=== PATIENT | male | born 1945 | race Caucasian/White ===

== ENCOUNTER → 2017-10-30 | Outpatient (CLI) | payer BC ==
[~2017-10-30] MED LIST: NAPR-1169 PO
== END | disposition home or self-care (01) ==
LOC: C.RDSM 17:55
PROVIDERS: ATTEND Physical Medicine & Rehabilitation Sports Medicine
DX: M25.551 Pain in right hip (principal)

== ENCOUNTER → 2017-12-07 | Outpatient (CLI) | payer BC ==
[2017-12-07 11:36] LABS: HEMOGLOBIN A1C 5.5 % (4.5-5.6)
[2017-12-07 11:40] LABS: ALBUMIN 3.8 gm/dl (3.4-5.0); ALT/SGPT 43 U/L (12-78); AST/SGOT 23 U/L (15-37); BLOOD UREA NITROGEN 14 mg/dl (7-18); CALCIUM 8.9 mg/dl (8.5-10.1); CARBON DIOXIDE 27 mmol/L (21-32); CREATININE 0.93 mg/dl (0.60-1.40); GLUCOSE 108 mg/dl (70-99); POTASSIUM 4.2 mmol/L (3.5-5.1); SODIUM 136 mmol/L (136-145)
[2017-12-07 11:51] LABS: ALKALINE PHOSPHATASE 73 U/L (45-117); CHOLESTEROL 148 mg/dl (0-200); LDL CHOLESTEROL CALCULATED 67 mg/dl; TOTAL PROTEIN 7.7 gm/dl (6.4-8.2)
== END | disposition home or self-care (01) ==
LOC: C.LABBC 08:07
PROVIDERS: ATTEND Internal Medicine Geriatric Medicine
DX: Z00.00 Encounter for general adult medical examination without abnormal findings (principal); M19.90 Unspecified osteoarthritis, unspecified site; R73.9 Hyperglycemia, unspecified; I10 Essential (primary) hypertension; Z68.41 Body mass index [BMI] 40.0-44.9, adult

== ENCOUNTER → 2018-01-10 | Outpatient (CLI) | payer BC ==
[~2018-01-10] MED LIST changes: +ATOR10TA82 PO; +OXYC-57 PO; +WARF2TAB PO
== END | disposition home or self-care (01) ==
LOC: C.LAB 15:41
PROVIDERS: ATTEND Physician Assistant
DX: Z01.818 Encounter for other preprocedural examination (principal)

== ENCOUNTER 2018-01-17 07:50 | Inpatient (IN) | payer BC, OTHER ==
[2018-01-08 14:42] VITALS: BMI 44.0
--- NOTE | 2018-01-08 15:11 | PAT Medication Instructions ---
Service Date Jan 08, 2018. Current Home Medication List Atorvastatin (Lipitor), 10 MG PO QAM Naproxen (Naprosyn), 500 MG PO BID Medication Instructions For Your Scheduled Surgery - Hold the following medications 5 days prior to surgery per your surgeon's instructions: Naproxen (Naprosyn), 500 MG PO BID - Take the following medications the morning of surgery with a sip of water: Atorvastatin (Lipitor), 10 MG PO QAM If you have any questions please call us at [phone] or [phone] or [phone]
--- NOTE | 2018-01-08 16:04 | DIAGNOSTIC IMAGING REPORT ---
TWO VIEW CHEST CLINICAL HISTORY: Preoperative examination. FINDINGS: PA and lateral chest radiographs are compared to study dated 03/02/2015. The cardiomediastinal silhouette is unremarkable. There is atherosclerotic calcification of the thoracic aorta. The lungs and pleural spaces are clear. There is no pneumothorax. The bony thorax appears intact. IMPRESSION: No active disease in the chest. Electronically signed by: Graham Geller M.D. 01/08/2018 4:03 PM Dictated Date/Time: 01/08/2018 4:03 PM
[2018-01-08 16:33] LABS: BASO % 0.5 %; BASO ABS # 0.03 K/uL (0-0.2); EOS % 5.2 %; EOS ABS # 0.32 K/uL (0-0.5); HEMATOCRIT 42.1 % (42-52); HEMOGLOBIN 14.9 g/dL (14.0-18.0); IG# 0.05 K/uL (0.00-0.02); LYMPH % 44.1 %; LYMPH ABS # 2.69 K/uL (1.2-3.4); MEAN CELL VOLUME 93.3 fL (80-100); MEAN CORPUSCULAR HGB CONC 35.4 g/dl (32-36); MEAN PLATELET VOLUME 8.5 fL (7.4-10.4); MONO % 8.7 %; MONO ABS # 0.53 K/uL (0.11-0.59); NEUT % 40.7 %; NEUT ABS # 2.48 K/uL (1.4-6.5); PLATELET COUNT 201 K/uL (130-400); RED CELL DISTRIBUTION WIDTH CV 13.1 % (11.5-14.5); RED CELL DISTRIBUTION WIDTH SD 44.9 fL (36.4-46.3)
[2018-01-08 16:44] LABS: INR 0.9 (0.9-1.1); PTT PATIENT 27.3 SECONDS (21.0-31.0)
--- NOTE | 2018-01-10 16:32 | HISTORY & PHYSICAL EXAMINATION ---
DATE OF ADMISSION: 01/17/2018 CHIEF COMPLAINT: Right hip pain. HISTORY OF PRESENT ILLNESS: This 72-year-old white male presents to the office with complaints of right hip pain that has been ongoing for approximately 8 years. Pain has become worse with time. He is now having difficulty with ADLs. No interruption in sleep. He does note his activity has changed. He has lost motion. He notes significant groin pain. No numbness or tingling. He has tried activity modification without improvement as well as OTC medications including Tylenol and Naprosyn. He elects to proceed with right total hip arthroplasty in hopes of alleviating his pain. Preoperative imaging has been obtained. PAST MEDICAL HISTORY: Significant for elevated cholesterol, sleep apnea, use of CPAP, obesity, and a history of arthritis. PAST SURGICAL HISTORY: Colon resection and reanastomosis for a villous adenoma in 2005. Tonsillectomy in February 2015 with incision and drainage of tonsillar abscess. CURRENT MEDICATIONS: Naprosyn 500 mg b.i.d. and Lipitor 10 mg daily. ALLERGIES: KNOWN ALLERGY TO PENICILLIN, WHICH CAUSED HIVES. He does take amoxicillin without issue. KNOWN ALLERGY TO SHELLFISH. FAMILY HISTORY: Reviewed and noncontributory. Parents are . REVIEW OF SYSTEMS: Significant for above stated conditions, otherwise unremarkable. PHYSICAL EXAMINATION: GENERAL: Well-developed and well-nourished, obese, elderly white male in no acute distress. Sitting in a chair. Alert and oriented. SKIN: Warm and dry with good turgor. No rashes or lesions. No ecchymosis. HEENT: Normocephalic and atraumatic. Eyes PERRLA, EOMI. Nares patent bilaterally without turbinate enlargement. Oropharynx is without erythema or exudate. No lesions noted. Uvula midline. Oral mucosa moist. Fair dentition. Fillings are noted. HEART: RRR. No MGR. LUNGS: Clear to auscultation bilaterally. No crackles, rhonchi or wheezing. Good air movement. Occasional dry cough. ABDOMEN: Obese. Bowel sounds present x4. Soft and nontender. No organomegaly. No masses. MUSCULOSKELETAL: Right hip evaluation reveals no obvious asymmetry or deformity. He has good external rotation of around 30 degrees. Internal rotation only to neutral. This is limited by pain. Hip flexion to around 95 degrees. This is also limited by pain. No focal discomfort with palpation over the greater trochanter or IT band. He does get discomfort with palpation over the anterior flexion crease. Ambulatory with an antalgic gait. NEUROLOGIC: Cranial nerves II through XII are intact. Gross sensation is intact across the lower extremities by soft touch. Peripheral pulses are 2+. DATA: Radiographic imaging previously obtained shows significant joint space narrowing, periarticular osteophytes, and subchondral cyst formation of the right hip. IMPRESSION: Right hip end-stage degenerative joint disease. PLAN: Postoperative prescriptions for Percocet and Coumadin will be provided at discharge from the hospital. Anticipate discharge to home with 2 weeks of home health services and then outpatient PT. Preoperative lab work, EKG, and chest x-ray have been ordered. Medical clearance has already been obtained from his PCP. He has a walker and will bring it to the hospital at the time of surgery. HUGH
[2018-01-17] VITALS (8 sets, daily range): BP systolic 108–172; BP diastolic 71–92; PULSE 73–88; TEMP 36.4–37.1; O2SAT 94–98; Ht 177.8 cm; Wt 43.7 kg
[~2018-01-17] VITALS: Ht 177.8 cm; Wt 43.7 kg
[~2018-01-17 07:50] MED LIST changes: +BUPIVACAINE 0.5 % 5 MG/1 ML PF 10ML VIAL ONE; +CEFAZOLIN 3000MG IV PUSH 22.5 ML IV SCH; +LACTATED RINGER'S 1000ML 1,000 ML IV SCH; +LACTATED RINGER'S 1000ML 500 ML IV SCH; +LACTATED RINGER'S 1000ML IV SCH; -OXYC-57 PO; +TRANEXAMIC ACID INJ 1,000 MG x 1 Bag Preop IV SCH; -WARF2TAB PO
--- NOTE | 2018-01-17 08:27 | History & Physical Bridge Note ---
H&P Re-Evaluation Bridge Note: I have examined the patient, reviewed the History & Physical and in the interval since the performance of the History & Physical I have noted the following changes of clinical significance:consent obtained. No changes noted
[2018-01-17] MEDS ORDERED: MIDAZOLAM HCL 1 MG/ML 2ML VIAL ONE (09:49)
[2018-01-17] MEDS ORDERED: FENTANYL CITRATE INJ 50 MCG/1 ML 2 ML VIAL ONE (09:49)
[2018-01-17] MEDS ORDERED: VANCOMYCIN 1GM ED/ASU OMNICELL ONE (10:22)
[2018-01-17] MEDS ORDERED: NURSING VERBAL MED ORDER STA (10:36)
[2018-01-17] MEDS ORDERED: POVIDONE-IODINE OP SOLN 30 ML BTL ONE (10:52)
[2018-01-17] MEDS ORDERED: ORTHO JOINT ANESTHETIC ONE (10:52)
[2018-01-17] MEDS ORDERED: VANCOMYCIN IV 1,000 MG in SODIUM CHLORIDE 0.9% 250ML 250 ML IV STA (11:03)
[2018-01-17] MEDS ORDERED: EpHEDrine SULFATE INJ 50 MG/ML AMP IV PRN (11:15)
[2018-01-17] MEDS ORDERED: FENTANYL CITRATE INJ 50 MCG/1 ML 2 ML VIAL IV PRN (11:15)
[2018-01-17] MEDS ORDERED: ATROPINE SULFATE 0.1 MG/ML 5ML SYR IV PRN (11:15)
[2018-01-17] MEDS ORDERED: ONDANSETRON INJ 2 MG/ML 2 ML VIAL IV PRN ×2 (11:15→13:00)
[2018-01-17] MEDS ORDERED: VANCOMYCIN CONSULT ACTIVE PRN (11:15)
[2018-01-17] MEDS ORDERED: LIDOCAINE HCL 2% 2 ML VIAL (20MG/ML) ONE (11:37)
[2018-01-17] MEDS ORDERED: PROPOFOL IV EMULSION 10 MG/ML 20 ML VIAL IV ONE ×2 (11:37→11:55)
[2018-01-17] MEDS ORDERED: EpHEDrine SULFATE 50MG/5ML SYR ONE (11:37)
[2018-01-17] MEDS: ROPIVACAINE 5MG/ML 30 ML 150 MG, BUPIVACAINE/EPINEPHR 0.5% MPF 30 ML, KETOROLAC TROMETH... INFIL SCH ×14 (12:27→12:29)
--- NOTE | 2018-01-17 12:36 | [facility] Post Operative Brief Note ---
Immediate Operative Summary Operative Date Jan 17, 2018. Pre-Operative Diagnosis Right Hip End-Stage Degenerative Joint Disease Post-Operative Diagnosis Right Hip End-Stage Degenerative Joint Disease Procedure(s) Performed Right Total Hip Arthroplasty--Uncemented Surgeon Dr. Elliott Cutter Grinder Operator Surgeon(s) Dr. Thien Noel (Fellow)/JAYNE Barth Estimated Blood Loss 200 ml Findings Consistent with Post-Op Diagnosis Fluids (cc crystalloids) 1500cc Specimens A. Right Femoral Head Drains None Anesthesia Type Spinal MAC Complication(s) none Disposition Accompanied Pt To Recover: no Disposition: Recovery Room / PACU
[2018-01-17] MEDS ORDERED: ACETAMINOPHEN 325 MG TAB PO PRN (13:00)
[2018-01-17] MEDS ORDERED: ALUMINUM/MAGNESIUM/SIMETH (MAALOX MAX) 30 ML UDC PO PRN (13:00)
[2018-01-17] MEDS ORDERED: MAGNESIUM HYDROXIDE SUSP 30 ML UDC PO PRN (13:00)
[2018-01-17] MEDS ORDERED: TAMSULOSIN HCL 0.4 MG CAP PO PRN (13:00)
[2018-01-17] MEDS ORDERED: METOCLOPRAMIDE HCL INJ 5 MG/ML 2 ML VIAL IV PRN (13:00)
[2018-01-17] MEDS ORDERED: DiphenhydrAMINE HCL 50 MG/ML VIAL IV PRN (13:00)
[2018-01-17] MEDS ORDERED: MoRPHine SULFATE 2 MG/ML CARP IV PRN (13:00)
[2018-01-17] MEDS ORDERED: BISACODYL 10 MG SUPP PR PRN (13:00)
--- NOTE | 2018-01-17 13:31 | PROGRESS NOTE ---
DATE: 01/17/2018 Postop check status post right total hip replacement. The patient is awake and alert in the recovery room. He denies any chest pain, shortness of breath, fever, chills, nausea, vomiting or headache. Vital signs are stable. He is afebrile. Neurovascular check is limited by his block. It has worn off yet. Wound dressing is clean, dry and intact. Postop x-rays look excellent. ASSESSMENT: Overall, doing well. Continue with care pathway. At this point in time, he will need to have MRSA precautions due to hospital policy although his immediate culture of his nose was normal and for some reason the second one today was not performed prior to the nasal swabbing with Betadine. As such, we will have to follow protocol and keep him in isolated type behavior. He was also given an empiric dose of vancomycin. Continue with his Ancef.
--- NOTE | 2018-01-17 13:39 | OPERATIVE REPORT ---
DATE OF OPERATION: 01/17/2018 SURGEON: Tong Elliott MD WILLOW MACHINE OPERATOR: Sadie. SECOND FELLED SEAM OPERATOR: David Pierson PA-C PREOPERATIVE DIAGNOSIS: Osteoarthritis, right hip. POSTOPERATIVE DIAGNOSIS: Same. OPERATION PERFORMED: Noncemented right total hip replacement. SUMMARY OF IMPLANTS: Size 52 acetabular shell sector cup hole eliminator, cancellous screw 6.5 x 30, acetabular liner 36 x 52 neutral, femoral stem 3, high offset Tri-Lock and 36+8.5 femoral head. ESTIMATED BLOOD LOSS: 200 mL. CRYSTALLOID: 1600 mL. PERIOPERATIVE SITUATION: Medically cleared male with intractable hip pain. He is high risk based on his size and his comorbidities, but meets criteria for surgical treatment of severe hip osteoarthritis. He has failed all conservative management and wished to proceed. He understands the risks and benefits. DESCRIPTION OF PROCEDURE: The patient was properly identified, site verified, consent verified, 3 grams of Ancef confirmed as being given, as well as a gram of vancomycin based on a remote history of having MRSA. He was prepped and draped in usual routine fashion with the patient placed in the left lateral decubitus position. A posterior approach to the hip was made. Sharp dissection carried to skin and blunt dissection down to the fascia. This was then incised. The Charnley retractor was then placed, care taken to protect the sciatic nerve. The short external rotators were released. They were very contracted. The capsule was T'd, the hip was then dislocated, the femoral neck was resected. There was a huge inverted labrum with marked degenerative disease. This was all excised and serial reaming carried up to a 52 and a 52 cup impacted into appropriate anteversion and inclination with excellent rim fit. The 6.5 x 30 screw was placed with excellent purchase. A trial liner seated. The femur was then flexed and internally rotated and the jukebox coin collector, lateralizing rasp, and serial broaching up to a size 3 applied. The hip was then reduced with a +5 and a +8.5, the +8.5 gave the leg lengths to be equal. The hip was then dislocated. The trial remaining implants removed. The wound irrigated with Pulsavac with Betadine and then the permanent hole eliminator and liner seated, the permanent head and stem seated. The hip was then reduced. It was stable in all planes. The leg lengths were within millimeters of equality. The capsule was then closed with #2 Vicryl. There were no major remnants of the contracted external rotators that would reach so they were left alone. IT band was then closed over deep drain and with #2 Vicryl, the subcutaneous layer in 2 layers with #2 Vicryl and 2-0 Vicryl and the skin with stainless steel clips. Appropriate dressing applied. The patient transferred to the recovery room in satisfactory condition, having tolerated the procedure well. Again, estimated blood loss was 200 mL. Bone pathology pending on the femoral head and neck. Crystalloid 3600-8825 mL. SUMMARY OF IMPLANTS: As noted above. DVT prophylaxis with Coumadin. I attest to the content of the Intraoperative Record and any orders documented therein. Any exception s are noted below.
--- NOTE | 2018-01-17 13:53 | DIAGNOSTIC IMAGING REPORT ---
SINGLE VIEW PELVIS; SINGLE VIEW RIGHT HIP CLINICAL HISTORY: Postoperative examination. FINDINGS: An AP portable view of the hips and pelvis with an additional AP portable view of the right hip are obtained. A bipolar right hip arthroplasty is in near-anatomic alignment. A single cortical lag screw transfixes the acetabular cup. No acute fracture is identified. There are expected postoperative changes overlying the right hip including skin clips, subcutaneous gas, a surgical drain, and soft tissue swelling. Mild arthritic change is seen in the left hip. Lumbosacral spondylosis is partially imaged. IMPRESSION: Expected postoperative findings status post right hip arthroplasty. No acute fracture is seen. Electronically signed by: Graham Geller M.D. 01/17/2018 1:52 PM Dictated Date/Time: 01/17/2018 1:51 PM
[2018-01-17] MEDS ORDERED: MoRPHine SULFATE 4 MG/ML 1 ML CARP\\VIAL IV PRN (14:30)
[2018-01-17] MEDS ORDERED: D5W AND 1/2NSS + 20MEQ KCL 1,000 ML IV SCH (14:30)
--- NOTE | 2018-01-17 14:52 | Anesthesiology Progress Note ---
Anesthesia Post Op Note Date & Time Jan 17, 2018 at 14:51 Vital Signs Pain Intensity: 0 Vital Signs Past 12 Hours Date Time Temp Pulse Resp B/P (MAP) Pulse Ox O2 Delivery O2 Flow Rate FiO2 01/17/18 13:47 73 15 01/17/18 13:47 73 15 98 01/17/18 13:45 132/77 01/17/18 13:42 74 11 01/17/18 13:42 72 11 99 01/17/18 13:41 123/74 01/17/18 13:37 68 14 100 01/17/18 13:37 68 14 01/17/18 13:36 131/58 01/17/18 13:32 79 20 99 01/17/18 13:32 76 20 01/17/18 13:31 70 20 98 01/17/18 13:31 76 20 01/17/18 13:30 141/92 01/17/18 13:28 37.1 73 20 141/92 (107) 98 Nasal Cannula 2 01/17/18 13:26 71 10 01/17/18 13:26 69 10 99 01/17/18 13:25 134/73 01/17/18 13:21 72 4 99 01/17/18 13:21 74 4 01/17/18 13:20 136/67 01/17/18 13:18 74 22 98 01/17/18 13:18 72 22 01/17/18 13:15 138/67 01/17/18 13:13 71 16 99 01/17/18 13:13 73 16 01/17/18 13:12 147/64 01/17/18 13:08 77 18 89 01/17/18 13:08 77 18 01/17/18 13:05 114/70 01/17/18 13:03 72 18 98 01/17/18 13:03 73 18 01/17/18 13:00 122/72 01/17/18 12:58 74 21 01/17/18 12:58 74 21 98 01/17/18 12:55 131/66 01/17/18 12:53 36.4 79 18 129/70 (86) 97 Room Air 10 01/17/18 12:53 79 15 129/70 96 01/17/18 12:53 79 15 01/17/18 08:46 36.5 88 20 172/92 95 Room Air Notes Mental Status: alert / awake / arousable, participated in evaluation Pt Amnestic to Procedure: Yes Nausea / Vomiting: adequately controlled Pain: adequately controlled Airway Patency, RR, SpO2: stable & adequate BP & HR: stable & adequate Hydration State: stable & adequate Neuraxial Anesthesia: was administered, sensory block is resolving Anesthetic Complications: no major complications apparent
[2018-01-17] MEDS ORDERED: WARFARIN SOD 5 MG TAB PO SCH (16:00)
[2018-01-17] MEDS: ACETAMINOPHEN IV 1,000 MG in EMPTY BAG 0 ML IV SCH (16:28)
[2018-01-17] MEDS: KETOROLAC TROMETHAMINE 15 MG/ML VIAL IV. SCH ×2 (16:29→22:09)
[2018-01-17] MEDS: FERROUS GLUCONATE 324 MG TAB PO SCH (18:22)
[2018-01-17] MEDS ORDERED: TRANEXAMIC ACID INJ 1,000 MG in SODIUM CHLORIDE 0.9% 100ML 100 ML IV SCH (19:00)
[2018-01-17] MEDS ORDERED: WARF2TAB PO ×2 (19:23)
[2018-01-17] MEDS ORDERED: OXYC-57 PO ×2 (19:23)
[2018-01-17] MEDS: OXYCODONE HCL IR 5 MG TAB (IMMEDIATE RELEASE) PO PRN (19:54)
[2018-01-17] MEDS: CEFAZOLIN IV 2,000 MG in SYRINGE 0 ML IV SCH (20:48)
[2018-01-17] MEDS: DOCUSATE SODIUM 100 MG CAP PO SCH (20:48)
[2018-01-18] MEDS: OXYCODONE HCL IR 5 MG TAB (IMMEDIATE RELEASE) PO PRN (00:01)
[2018-01-18] MEDS: ACETAMINOPHEN IV 1,000 MG in EMPTY BAG 0 ML IV SCH ×2 (00:53→08:23)
[2018-01-18 03:36] VITALS: BP 111/74; PULSE 71; TEMP 37; O2SAT 95
[2018-01-18] MEDS: KETOROLAC TROMETHAMINE 15 MG/ML VIAL IV. SCH ×2 (04:59→10:52)
[2018-01-18] MEDS: CEFAZOLIN IV 2,000 MG in SYRINGE 0 ML IV SCH (05:04)
[2018-01-18 07:15] VITALS: BP 113/58; PULSE 80; TEMP 37.3; O2SAT 95
[2018-01-18] MEDS ORDERED: DEXAMETHASONE INJ 10 MG in SYRINGE 0 ML IV SCH (07:30)
--- NOTE | 2018-01-18 07:42 | PROGRESS NOTE ---
DATE: 01/18/2018 SUBJECTIVE: Status post right total hip replacement. OBJECTIVE: The patient is doing well, is sleeping well, got up, ambulated well. Denies chest pain, shortness of breath, fever, chills, nausea, vomiting, or headache. Voiding. Passing gas. Vital signs are stable. He is afebrile. A.m. labs are pending. Wound dressing is clean, dry, and intact. Drain is removed. Neurovascular check, femoral sciatic nerve is normal. ASSESSMENT AND PLAN: Overall, doing well status post right total knee replacement. We will discharge to home today. A Prevena dressing will be placed later today. We will follow up in 1 week for Prevena dressing change, discharge on 4 mg of Coumadin if INR is 1.5 or less and 2 mg if INR is 1.6 or greater.
[2018-01-18 07:52] LABS: BASO % 0.1 %; BASO ABS # 0.01 K/uL (0-0.2); EOS % 0.4 %; EOS ABS # 0.04 K/uL (0-0.5); HEMATOCRIT 37.8 % (42-52); HEMOGLOBIN 13.1 g/dL (14.0-18.0); IG# 0.03 K/uL (0.00-0.02); LYMPH % 19.5 %; LYMPH ABS # 1.95 K/uL (1.2-3.4); MEAN CELL VOLUME 94.3 fL (80-100); MEAN CORPUSCULAR HEMOGLOBIN 32.7 pg (25-34); MEAN CORPUSCULAR HGB CONC 34.7 g/dl (32-36); MEAN PLATELET VOLUME 8.5 fL (7.4-10.4); MONO % 13.3 %; MONO ABS # 1.33 K/uL (0.11-0.59); NEUT % 66.4 %; NEUT ABS # 6.63 K/uL (1.4-6.5); PLATELET COUNT 170 K/uL (130-400); RED CELL DISTRIBUTION WIDTH CV 13.1 % (11.5-14.5); RED CELL DISTRIBUTION WIDTH SD 45.2 fL (36.4-46.3); WHITE BLOOD COUNT 9.99 K/uL (4.8-10.8)
--- NOTE | 2018-01-18 08:07 | DISCHARGE SUMMARY ---
CHIEF COMPLAINT: Right hip pain. HISTORY OF PRESENT ILLNESS: This 73-year-old male admitted for elective right total hip replacement. He has no major issues. His hospital course has been uneventful. PAST MEDICAL HISTORY: Remarkable for elevated cholesterolemia, sleep apnea, CPAP use, obesity, history of arthritis. PAST SURGICAL HISTORY: Remarkable for colon resection and reanastomosis, tonsillectomy, history of tonsillar abscess, history of MRSA, most recent MRSA nasal culture was negative. CURRENT MEDICATIONS: Include Naprosyn and Lipitor. He will continue the Lipitor, discontinue the Naprosyn, p.r.n. use of pain medication, see script, and Coumadin to keep INR 1.8-2.2. If INR is 1.5 or less, discharge on 4 mg, if 1.6 or greater, discharge on 2 mg, check INR on Monday. ALLERGIES: TO PENICILLIN WHICH CAUSES HIVES. He takes amoxicillin without issue. KNOWN ALLERGY TO SHELLFISH. REVIEW OF SYSTEMS: Noncontributory. FAMILY HISTORY: Noncontributory. HOSPITAL COURSE: Hospital course has been uneventful, did well status post hip replacement. He is ambulatory. His postop x-rays look excellent. Laboratory work this morning is pending. Drain is removed this morning. We will place Prevena. Follow up in a week for Prevena dressing change. See Coumadin recommendations as noted above.
[2018-01-18 08:20] LABS: CALCIUM 8.1 mg/dl (8.5-10.1); CREATININE 0.86 mg/dl (0.60-1.40); POTASSIUM 4.1 mmol/L (3.5-5.1)
[2018-01-18] MEDS: FERROUS GLUCONATE 324 MG TAB PO SCH ×2 (08:23→12:30)
[2018-01-18] MEDS: DOCUSATE SODIUM 100 MG CAP PO SCH (08:24)
[2018-01-18] MEDS ORDERED: MULTIVITAMIN TAB PO SCH (09:00)
[2018-01-18] MEDS ORDERED: PANTOprazole SOD 40 MG TAB PO SCH (09:00)
[2018-01-18] MEDS ORDERED: ATORVASTATIN 10 MG TAB PO SCH (09:00)
[2018-01-18] MEDS ORDERED: WARFARIN SOD 5 MG TAB PO ONE (10:00)
--- NOTE | 2018-01-18 10:05 | Discharge Instructions ---
Discharge Instructions Date of Service Jan 17, 2018. Admission Reason for Admission: Right Hip Osteoarthritis Discharge Discharge Diagnosis / Problem: Right hip s/p total hip replacement Discharge Goals Goal(s): Decrease discomfort, Improve function, Increase independence Activity Recommendations Activity Limitations: as noted below Lifting Limitations: gradually increase as tolerated Exercise/Sports Limitations: until after follow-up appointment Shower/Bathe: keep incision dry Driving or Machine Use: No driving until cleared by Dr. Elliott Weightbearing Status: Right weightbearing (as tolerated) . Instructions / Follow-Up Instructions / Follow-Up New Medicine: * You will likely be taking one or more of these medicines: 1. Percocet - Take, as directed, when you need it, every four to six hours to control your pain. 2. Coumadin - Thins your blood to lessen the chance of forming a blood clot. The dose of this is different for each person and is based on your blood tests that are done twice a week. * The most common side effects of pain medicine and iron are nausea and constipation. If nausea or constipation is too much of a problem or if you have any questions about your new medicines or doses, call [facility] at . We will try to help you manage these issues. VERY IMPORTANT TO READ AND REVIEW" Blood Clots and Blood Thinning Medicine: * You are given Coumadin during the immediate post-operative period to lessen the risk of blood clots forming in your legs and/or lungs. Coumadin is usually given for six weeks after surgery. * The prescription is for 2 mg tablets. At discharge, you should understand your dose and take it all at the same time every day, preferably after dinner. * You need to get your blood checked 1 - 2 times per week for six weeks, or as directed. * If your dose needs to change, we will call you. Do not take your medication on the day of the blood test until we call you. * If you don't hear from us after your blood draws, keep taking the same dose. Pain: * The immediate post-operative period after hip replacement surgery is often quite painful. * You are given a prescription for pain medicine. You should take it, as directed, when you need it, especially before physical therapy and before going to bed. Pain that interferes with sleep is very common and can last several months. * You will likely need pain medicine for the first two to four weeks. It will not stop all of the pain. The pain will lessen and as you feel better, you may change to milder pain medicine such as Tylenol. * The most common side effects of pain medicine are nausea and constipation, so don't take more than you need. Physical Therapy: * Follow the "Hip Precautions Instructions." * In some cases, the psychiatric social worker at the hospital will arrange to have a therapist come to your house for the first couple of weeks to help you learn these skills. * You need to practice on your own or with the help of a family member as needed. * When you learn these skills, most of the therapy can be done on your own. Home Exercise: * You were shown a series of exercises in the hospital. Do these exercises three to four times each day including the exercises you were shown in physical therapy. Walking: * Get up and walk several times each day. For the first four weeks, try not to stand or walk for more than one hour at a time. If you do stand or walk for more than one hour, you will not hurt anything, but your leg will likely swell. * As you feel comfortable, you may change from the walker or crutches to a cane and then to independent walking. SELF CARE INSTRUCTIONS AFTER TOTAL HIP REPLACEMENT Until the incision and soft tissues around your hip have healed, there is a possibility that the hip prosthesis could dislocate. A. Observe the following precautions to prevent dislocation: 1. Don't bend your hip greater than 90 degrees. 2. Avoid crossing your legs or ankles while standing or lying. 3. Sit with your feet placed 6 inches apart. 4. When sitting, keep your knees below your hips. Sit on a firm surface, avoid deep, soft chairs and couches. Use an elevated toilet seat in the bathroom. 5. Don't bend over at the waist. Use a long handled shoehorn and a sock aid to help you put on your shoes and socks. A grill cook can help you clam picker objects that are too high or too low to reach. 6. Keep car riding to a minimum for at least one month after surgery. B. Your balance may be shaky for a while. Use crutches or a walker until directed by your doctor. C. Use hand rails when walking on stairs. D. Wear low heeled shoes with non-slip soles. E. Be sure that your floors are free of things that could trip you - throw rugs , electrical cords, small objects. Avoid wet and waxed floors, especially with crutches and canes. F. Try to walk several times a day with rest periods between. G. Continue with all the exercises taught to you in the hospital. Again, make walking a part of your daily routine. VERY IMPORTANT TO READ AND REVIEW A. Take Coumadin, or Lovenox (blood thinning medications) as directed by your doctor. If you are on Coumadin, have a pro-time (blood test) drawn according to your doctor's instructions. This will tell the doctor how well the Coumadin is thinning your blood. B. There are a few signs you need to watch for after you are home. If you notice any of the followin. Increased severe hip pain. Some pain is expected especially when you exercise. 2. Increased swelling in your leg or knee; pain or swelling of the calf muscle in either lower leg. 3. Any fluid drainage from the incision. 4. Shortness of breath or chest pain. TEDs/Elastic Stockings: * The white elastic stockings help limit swelling and prevent blood clots from forming in your legs. The more you wear them, the more they work. * Wear them for six weeks. Prevention of Infection: * Take antibiotics one hour before any dental cleaning, dental work, urological procedure, gastrointestinal procedure or any invasive surgery in order to prevent your new joint from getting infected. * You may get the antibiotics from the doctor performing the procedure or we will call in a prescription to the pharmacy of your choice. Call the office for a prescription at least 2 days prior to your appointment. Things to Watch For: * Drainage from the incision site that occurs more than one week after your surgery. * Severely increased leg pain or swelling. * Increased redness at the incision site. * Fever above 101 degrees Fahrenheit. * Unusual chest pain or shortness of breath. * Unusual pain or burning with urination. Current Hospital Diet Patient's current hospital diet: Regular Diet Discharge Diet Recommended Diet: Regular Diet Procedures Procedures Performed: Right Total Hip Arthroplasty--Uncemented Pending Studies Studies pending at discharge: no Laboratory Results Hemoglobin A1c Test 12/07/17 08:12 Range/Units Estimated Average Glucose 111 mg/dl Hemoglobin A1c 5.5 4.5-5.6 % Lipid Panel Test 12/07/17 08:12 Range/Units Triglycerides Level 197 H 0-150 mg/dl Cholesterol Level 148 0-200 mg/dl HDL Cholesterol 42 mg/dl Cholesterol/HDL Ratio 3.5 LDL Cholesterol, Calculated 67 mg/dl Medical Emergencies . Who to Call and When: Medical Emergencies: If at any time you feel your situation is an emergency, please call 911 immediately. . Non-Emergent Contact Non-Emergency issues call your: Primary Care Provider, Surgeon Call Non-Emergent contact if: temperature is above 101, wound has increased drainage, wound has increased redness, wound has increased pain, you have any medication questions . "Provider Documentation" section prepared by David Pierson PA-C. . [facility] Drug Monitoring Program Search Results: no issues identified
--- NOTE | 2018-01-18 10:08 | Orthopedic Progress Note ---
Orthopedic Progress Note Date of Service Jan 18, 2018. Subjective Post OP Day: 1 Reports: feeling well, Denies: complaints Additional Notes: at bedside Objective calves soft nontender, hip located, capillary refill less than 2 sec., dressing C/D/I, incision C/D/I, A&O x3, toes mobile wound looks good. Drain has already been removed. Date Time Temp Pulse Resp B/P (MAP) Pulse Ox O2 Delivery O2 Flow Rate FiO2 01/18/18 08:30 Room Air 01/18/18 07:15 37.3 80 16 113/58 (76) 95 Room Air 01/18/18 03:36 37.0 71 16 111/74 (86) 95 CPAP 01/18/18 00:00 Room Air 01/17/18 23:01 36.5 88 18 112/73 (86) 94 CPAP 01/17/18 20:02 37.1 85 17 121/78 (92) 94 Room Air 01/17/18 20:00 Room Air 01/17/18 17:02 83 18 119/77 (91) 95 Nasal Cannula 2.0 01/17/18 16:00 36.8 83 16 108/71 (83) 95 Nasal Cannula 2.0 01/17/18 15:00 36.8 85 18 128/77 (94) 98 Nasal Cannula 2.0 01/17/18 14:30 36.4 73 16 147/80 (102) 97 Nasal Cannula 2.0 01/17/18 14:00 97 Nasal Cannula 2.0 01/17/18 14:00 36.4 83 16 149/82 (104) 97 Nasal Cannula 2.0 01/17/18 14:00 Nasal Cannula 2.0 97 01/17/18 13:47 73 15 01/17/18 13:47 73 15 98 01/17/18 13:45 132/77 01/17/18 13:42 74 11 01/17/18 13:42 72 11 99 01/17/18 13:41 123/74 01/17/18 13:37 68 14 100 01/17/18 13:37 68 14 01/17/18 13:36 131/58 01/17/18 13:32 79 20 99 01/17/18 13:32 76 20 01/17/18 13:31 70 20 98 01/17/18 13:31 76 20 01/17/18 13:30 141/92 01/17/18 13:28 37.1 73 20 141/92 (107) 98 Nasal Cannula 2 01/17/18 13:26 71 10 01/17/18 13:26 69 10 99 01/17/18 13:25 134/73 01/17/18 13:21 72 4 99 01/17/18 13:21 74 4 01/17/18 13:20 136/67 01/17/18 13:18 74 22 98 01/17/18 13:18 72 22 01/17/18 13:15 138/67 01/17/18 13:13 71 16 99 01/17/18 13:13 73 16 01/17/18 13:12 147/64 01/17/18 13:08 77 18 89 01/17/18 13:08 77 18 01/17/18 13:05 114/70 01/17/18 13:03 72 18 98 01/17/18 13:03 73 18 01/17/18 13:00 122/72 01/17/18 12:58 74 21 01/17/18 12:58 74 21 98 01/17/18 12:55 131/66 01/17/18 12:53 36.4 79 18 129/70 (86) 97 Room Air 10 01/17/18 12:53 79 15 129/70 96 01/17/18 12:53 79 15 Laboratory Results 24 Hours: Test 01/18/18 07:20 White Blood Count 9.99 K/uL Red Blood Count 4.01 M/uL Hemoglobin 13.1 g/dL Hematocrit 37.8 % Mean Corpuscular Volume 94.3 fL Mean Corpuscular Hemoglobin 32.7 pg Mean Corpuscular Hemoglobin Concent 34.7 g/dl Platelet Count 170 K/uL Mean Platelet Volume 8.5 fL Neutrophils (%) (Auto) 66.4 % Lymphocytes (%) (Auto) 19.5 % Monocytes (%) (Auto) 13.3 % Eosinophils (%) (Auto) 0.4 % Basophils (%) (Auto) 0.1 % Neutrophils # (Auto) 6.63 K/uL Lymphocytes # (Auto) 1.95 K/uL Monocytes # (Auto) 1.33 K/uL Eosinophils # (Auto) 0.04 K/uL Basophils # (Auto) 0.01 K/uL Prothromb Time International Ratio 1.0 Prothrombin Time 10.4 SECONDS Assessment & Plan Assessment: Right hip post op day 1 total hip arthroplasty Plan: PT/OT today maintain total hip precautions Coumadin per nomogram dressings removed today-Prevena wound vac placed D/C to home today with home nursing Discharge Planning Discharge Planning: home with home health Pain Management: Percocet DVT Prophylaxis: TEDs, SCDs, Coumadin Therapy: Physical Therapy, Occupational Therapy
[2018-01-18 12:00] VITALS: BP 95/57; PULSE 88; TEMP 37.6; O2SAT 93
[2018-01-18 13:16] VITALS: BP 95/57; PULSE 88; TEMP 37.6; O2SAT 93
--- NOTE | 2018-01-18 14:25 | Anesthesiology Progress Note ---
Anesthesia Post Op Note Date & Time Jan 18, 2018 at 14:00 Vital Signs Vital Signs Past 12 Hours Date Time Temp Pulse Resp B/P (MAP) Pulse Ox O2 Delivery O2 Flow Rate FiO2 01/18/18 13:16 37.6 88 16 93 Room Air 01/18/18 12:00 37.6 88 16 95/57 (70) 93 Room Air 01/18/18 08:30 Room Air 01/18/18 07:15 37.3 80 16 113/58 (76) 95 Room Air 01/18/18 03:36 37.0 71 16 111/74 (86) 95 CPAP Notes Mental Status: alert / awake / arousable, participated in evaluation Pt Amnestic to Procedure: Yes Nausea / Vomiting: adequately controlled Pain: adequately controlled Airway Patency, RR, SpO2: stable & adequate BP & HR: stable & adequate Hydration State: stable & adequate Neuraxial Anesthesia: sensory block resolved Anesthetic Complications: no major complications apparent
--- NOTE | 2018-01-18 17:37 | [facility] Operative Report ---
Operative Report Operative Date Jan 18, 2018. Pre-Operative Diagnosis Right Hip End-Stage Degenerative Joint Disease Post-Operative Diagnosis Right Hip End-Stage Degenerative Joint Disease Procedure(s) Performed Right Total Hip Arthroplasty--Uncemented Surgeon Dr. Elliott Humidifier Attendant Surgeon(s) Dr. Thien Noel (Fellow)/JAYNE Hernandez Estimated Blood Loss 200 ml Findings Right hip end-stage DJD Fluids 1500cc Specimens A. Right Femoral Head Drains None Anesthesia Type Spinal MAC Complication(s) none Disposition no Recovery Room / PACU Indications This 73-year-old white male presented to the office with complaints of intractable right hip pain. He had tried conservative care measures including activity modification, oral anti-inflammatories, and oral pain medication without lasting improvement. He elected to proceed with surgical intervention after being educated about potential risks and outcomes. Description of Procedure Patient was administered a spinal anesthetic and then taken to the operating room where he was given sedation. He was prepped and draped in usual sterile fashion. Please see Dr. Elliott's operative report for specifics of the procedure. I was present for the entire case from initial patient positioning through final wound closure. Assistance was provided in tissue retraction, hemostasis, trial implant placement, final implant placement, and final wound closure. Patient was taken to the recovery room in satisfactory condition. I attest to the content of the Intraoperative Record and any orders documented therein. Any exceptions are noted below.
== END 2018-01-18 14:05 | disposition home health service (06) | DRG 470 ==
LOC: C.ACU 07:50 → C.MSW 08:35 → ENRESERV 13:27
PROVIDERS: ADMIT Physical Medicine & Rehabilitation Sports Medicine; ATTEND Physical Medicine & Rehabilitation Sports Medicine
PROC: 0SR90JA Replacement of Right Hip Joint with Synthetic Substitute, Uncemented, Open Approach (ICD-10-PCS; principal; 2018-01-17 10:40)
DX: M16.11 Unilateral primary osteoarthritis, right hip (principal); E78.00 Pure hypercholesterolemia, unspecified; G47.30 Sleep apnea, unspecified; E66.9 Obesity, unspecified; Z98.0 Intestinal bypass and anastomosis status; Z88.0 Allergy status to penicillin; Z86.14 Personal history of Methicillin resistant Staphylococcus aureus infection

== ENCOUNTER → 2018-01-25 | Outpatient (CLI) | payer BC ==
[~2018-01-25] MED LIST changes: -BUPIVACAINE 0.5 % 5 MG/1 ML PF 10ML VIAL ONE; -CEFAZOLIN 3000MG IV PUSH 22.5 ML IV SCH; -LACTATED RINGER'S 1000ML 1,000 ML IV SCH; -LACTATED RINGER'S 1000ML 500 ML IV SCH; -LACTATED RINGER'S 1000ML IV SCH; -NAPR-1169 PO; +OXYC-57 PO; -TRANEXAMIC ACID INJ 1,000 MG x 1 Bag Preop IV SCH; +WARF2TAB PO
[2018-01-25 10:48] LABS: INR 1.2 (0.9-1.1)
== END | disposition home or self-care (01) ==
LOC: C.LABSPEC 10:12
PROVIDERS: ATTEND Physical Medicine & Rehabilitation Sports Medicine
DX: Z79.01 Long term (current) use of anticoagulants (principal)

== ENCOUNTER → 2018-01-29 | Outpatient (CLI) | payer BC ==
[2018-01-29 11:13] LABS: INR 1.5 (0.9-1.1)
== END ==
LOC: C.LABSPEC 10:52
PROVIDERS: ATTEND Physical Medicine & Rehabilitation Sports Medicine
DX: Z96.641 Presence of right artificial hip joint (principal)

== ENCOUNTER → 2018-02-05 | Outpatient (CLI) | payer BC ==
[2018-02-05 15:13] LABS: INR 1.5 (0.9-1.1)
== END | disposition home or self-care (01) ==
LOC: C.LAB1850 13:24
PROVIDERS: ATTEND Physician Assistant
DX: Z96.649 Presence of unspecified artificial hip joint (principal)

== ENCOUNTER → 2018-05-21 | Outpatient (CLI) | payer BC | END | disposition home or self-care (01) | LOC: C.RDSM 08:30 | PROVIDERS: ATTEND Physical Medicine & Rehabilitation Sports Medicine | DX: Z96.649 Presence of unspecified artificial hip joint (principal); Z88.0 Allergy status to penicillin; Z91.013 Allergy to seafood ==

== ENCOUNTER 2023-11-01 05:12 | Observation (INO) ==
--- NOTE | 2023-10-13 14:43 | PAT Medication Instructions ---
Medication Instructions Date of Service October 13, 2023 Home Medications Medication Instructions Recorded rosuvastatin 10 mg tablet (Crestor) 10 mg PO QAM #90 tabs 02/13/23 MEDICATION INSTRUCTIONS: Take morning of surgery With a small sip of water, OTHERWISE NOTHING TO EAT OR DRINK AFTER MIDNIGHT: rosuvastatin 10 mg tablet (Crestor) 10 mg PO QAM Other Notes If you have any questions please call us at [phone] or [phone] or [phone] or [phone]
--- NOTE | 2023-10-19 14:19 | Anesthesiology Consultation ---
Date of Service October 19, 2023 Assessment & Plan (1) Encounter for pre-operative examination: - Infectious disease screening: Per assessment on 10/19/23: No known infectious disease contacts or current infectious disease symptoms. No noted recent Covid positive test result. - Outpatient joint assessment: Pt currently scheduled for inpatient pathway. If surgeon requests review for outpatient joint pathway, patient is not recommended candidate for outpatient joint program from anesthesia standpoint. - S/P Right BISHNU (01/18/18): SAB at [facility] - Patient acceptable risk for surgery pending surgeon-ordered PCP preop evaluation (TIMOTHYG, appt 10/26). Chart Review Chart Review: Patient seen in Pre Admission Testing Teaching & Discussion Pre-Anesthesia Teaching/Discussion Notes: Instructed NPO after midnight before surgery,except medications with 15 cc of water. Medication instructions provided according to the PAT guidelines. History Surgery Operation Date: 11/01/23 08:50 Proposed Procedures p Left Total Hip Arthroplasty with Possible Dual Mobility Cup - Tong Elliott MD Height/Weight Height: 5 ft 9 in Weight: 137.8 kg Allergies Allergy/AdvReac Type Severity Reaction Status Date / Time shellfish derived Allergy Severe Anaphylaxis Verified 10/13/23 16:27 Penicillins Allergy Intermediate Hives Verified 10/13/23 16:27 atorvastatin Allergy Mild Muscle Verified 10/13/23 16:27 cramp sulfamethoxazole Allergy Unknown Unknown Verified 10/13/23 16:27 [From Bactrim] trimethoprim [From Bactrim] Allergy Unknown Unknown Verified 10/13/23 16:27 Medications Home Medications Medication Instructions Recorded Confirmed Last Taken rosuvastatin 10 mg tablet (Crestor) 10 mg PO QAM #90 tabs 02/13/23 10/12/23 Unknown Past Medical History Medical History Dyslipidemia Hypertriglyceridemia Irregular heart beat Hx PACs, PVCs [place] 12[place] [facility] [place] Metabolic syndrome Per records, patient unaware Obstructive sleep apnea CPAP (compliant) Prediabetes HGBA1C 5.9% 08/2023 Sensorineural hearing loss (SNHL) of left ear with restricted hearing of right ear Poorer WRS left Tinnitus, bilateral Exercise / Class Metabolic Activity III < 4 Walking/Shop/Light housework Past Family History Family History Brother Sarcoma Cancer Other Allergies No family history of adverse response to anesthesia Osteoarthritis Denies family history of Ovarian cancer Prostate cancer Diabetes Myocardial infarction Breast cancer Lung cancer Colorectal cancer Stroke Past Surgical History Surgical History H/O colonoscopy History of left cataract extraction History of partial colectomy villous adenoma (benign) removed History of right cataract surgery History of tonsillectomy + uvulectomy Hx of rotator cuff surgery Right Status post total hip replacement, right Right BISHNU (01/18/18): SAB at [facility] [place] teeth removed Past Anesthesia History No Hx of Anesthesia Complications and No Family Hx of Anesthesia Complications History of PONV No Hx of PONV and No Hx of Motion Sickness Social History Smoking Status: Never smoker Do You Dip or Chew Tobacco: No Hx Alcohol Use: No Hx Substance Use: No substance use type: does not use Review of Systems Patient denies chest pain, shortness of breath, fever, chills, cough, wheezing, palpitations. Physical Exam Vital Signs VITALS BP 115/80 P 76 TEMP 98.0 SP02 94%RA RESP 18 PHYSICAL Full cervical extension range of motion. Full TMJ range of motion. TMD 3 finger breaths Mallampati Score 1 Dentition: intact, + crown Lungs: clear throughout to auscultation Cardiac: regular rate and rhythm, no murmurs noted Spine: normal Carotid arteries: negative bruit Extremities: no LE edema Thick neck Lab Results Anesthesia Preop Results Results Anesthesia Widget: WBC 7.23 K/ul (4.8-10.8) 10/19/23 Hgb 15.0 g/dl (14.0-18.0) 10/19/23 Hct 42.8 % (42.0-52.0) 10/19/23 Plt 242 K/uL (130-400) 10/19/23 Na 138 mmol/L (136-145) 10/19/23 K 4.6 mmol/L (3.5-5.1) 10/19/23 Cl 105 mmol/L (98-107) 10/19/23 CO2 26 mmol/L (21-32) 10/19/23 BUN 19 mg/dl (6-23) 10/19/23 Creat 1.06 mg/dl (0.6-1.4) 10/19/23 Glucose Level 103 mg/dl (70-99(Fasting)) H 10/19/23 PT 10.4 Seconds (9.0-12.0) 10/19/23 PTT 30 Seconds (21-31) 10/19/23 INR 0.9 (0.9-1.1) 10/19/23 HA1c 5.9 % (4.5-5.6) H 08/24/23 Urine Color Yellow 10/19/23 Urine Appearance Clear (Clear) 10/19/23 Urine pH 5.0 (4.5-7.5) 10/19/23 Urine Specific [place] 1.027 (1.000-1.030) 10/19/23 Urine Protein Negative (Negative) 10/19/23 Urine Glucose (UA) Negative (Negative) 10/19/23 Urine Ketones Trace (Negative) H 10/19/23 Urine Blood Negative (Negative) 10/19/23 Urine Nitrite Negative (Negative) 10/19/23 Urine Bilirubin Negative (Negative) 10/19/23 Urine Urobilinogen Negative (Negative) 10/19/23 Urine Leukocyte Esterase Negative (Negative) 10/19/23 Blood Type O Positive 10/19/23 Antibody Screen NEGATIVE 10/19/23 Testing Electrocardiogram Date: 10/19/23 NSR with sinus arrhythmia at 75bpm. iRBBB. Chest X-Ray Date: 10/19/23 FINDINGS: No pneumothorax. No pleural effusions. The lungs are clear. The heart is top normal in size. No acute fractures identified. Degenerative changes within the thoracic spine. IMPRESSION: No acute process. Stress Test Date: 12/10/20 Type: DSE Negative dobutamine stress echo for ischemia at 88% MPHR. No ST segment changes or arrhythmias with dobutamine. Rate dependent RBBB. LVEF 55-60%. No significant valvular pathology.
[~2023-11-01 05:12] MED LIST changes: +ALLERGY Noted to ORDERED Medication SCH; -ATOR10TA82 PO; -OXYC-57 PO; +VANCOMYCIN CONSULT ACTIVE PRN; -WARF2TAB PO
[2023-11-01] MEDS ORDERED: ROPIVACAINE 0.5% HCL/PF 246 MG, Ketorolac (*for OR use only*) 30 MG, EPINEPHrine 30MG/3... INFIL SCH (06:00)
[2023-11-01] MEDS ORDERED: VANCOMYCIN HCL 2,000 MG in SODIUM CHLORIDE 0.9% 500 ML IV ONE (06:00)
[2023-11-01] MEDS ORDERED: LR 500ML BOLUS, THEN 15ML/HR IV SCH (06:00)
[2023-11-01] MEDS ORDERED: TRANEXAMIC ACID 1,000 MG **IV Pre-op IV SCH (06:00)
[2023-11-01] MEDS ORDERED: LR 60ML/HR IV SCH (06:00)
[2023-11-01] MEDS ORDERED: BUPIVACAINE 0.5 % 5 MG/1 ML PF 10ML VIAL ONE (06:14)
--- NOTE | 2023-11-01 06:21 | History & Physical Bridge Note ---
Date of Service November 01, 2023 History & Physical Bridge Note I have examined the patient, reviewed the History & Physical and in the interval since the performance of the History & Physical I have noted the following changes of clinical significance:consent and site verified. no changes noted
[2023-11-01] MEDS ORDERED: Nursing to Pharmacy Communication SCH (06:30)
[2023-11-01] MEDS ORDERED: ORTHO JOINT ANESTHETIC ONE (06:37)
[2023-11-01] MEDS ORDERED: MIDAZOLAM HCL 1 MG/ML 2ML VIAL ONE ×2 (06:42→06:43)
[2023-11-01] MEDS ORDERED: fentaNYL citrate PF 100 MCG/2 ML VIAL IV PRN (07:12)
[2023-11-01] MEDS ORDERED: PROMETHAZINE HCL 12.5 MG in SODIUM CHLORIDE 0.9% 50 ML IV PRN (07:12)
[2023-11-01] MEDS ORDERED: ePHEDrine sulfate 50 MG/ML AMP IV PRN (07:12)
[2023-11-01] MEDS ORDERED: ATROPINE SULFATE 0.1 MG/ML 10ML SYR IV PRN (07:12)
[2023-11-01] MEDS ORDERED: ONDANSETRON INJ 2 MG/ML 2 ML VIAL IV PRN (07:12)
[2023-11-01] MEDS ORDERED: HYDROmorphone INJ 2 MG/ML SYR/VIAL IV PRN (07:12)
[2023-11-01] MEDS ORDERED: KETAMINE HCL 10MG/ML SYR ONE (07:27)
[2023-11-01] MEDS ORDERED: PHENYLEPHRINE 100MCG/ML 10ML SYR IV ONE (07:52)
[2023-11-01] MEDS ORDERED: GLYCOPYRROLATE 0.2 MG/ML VIAL ONE (07:52)
[2023-11-01] MEDS ORDERED: PROPOFOL IV EMULSION 10 MG/ML 20 ML VIAL IV ONE ×2 (07:52→08:45)
[2023-11-01] MEDS ORDERED: TRANEXAMIC ACID 100 MG/ML 10 ML VIAL IV ONE (08:36)
--- NOTE | 2023-11-01 08:56 | Post Operative Brief Note ---
Immediate Post Op Note v1 Date of Surgery November 01, 2023 Pre & Post Diagnosis Operation Date: 11/01/23 07:00 <No data on this case meets the specified criteria> Severe osteoarthritis left hip preop diagnosis Postop diagnosis severe osteoarthritis left hip I identified the patient and participated in the time-out.: Yes Procedure Operation Date: 11/01/23 07:00 <No data on this case meets the specified criteria> Noncemented left total replacement with dual mobility implants Surgeon Tong Elliott MD Grill Associate GIL/Kenna Estimated Blood Loss 150 Findings Consistent with Post-Op Diagnosis Severe DJD with marked inverted labrum entrapped labral tear Fluids See anesthesia report Complications None
--- NOTE | 2023-11-01 09:00 | Operative Report ---
Post Operative Report Pre & Post Diagnosis Operation Date: 11/01/23 07:00 <No data on this case meets the specified criteria> Severe osteoarthritis left hip with entrapped labrum preop diagnosis Postop diagnosis same I identified the patient and participated in the time-out.: Yes Procedure Operation Date: 11/01/23 07:00 <No data on this case meets the specified criteria> Noncemented left total replacement with dual mobility implants Surgeon Tong Elliott MD Anode Machine Operator GIL/Kenna Estimated Blood Loss 150 Findings Consistent with Post-Op Diagnosis Severe DJD with entrapped labrum Fluids See anesthesia report Specimens Bone pathology Drains None Complications None Indications Severe pain end-stage x-rays failed conservative management Description of Procedure After the patient was appropriate notified site verified consent verified patient was placed in the right lateral decubitus position left lower remedy prepped and draped use routine fashion. Everything was padded appropriately. A generous incision based on patient's size was made. Full-thickness flaps were raised. The IT band and gluteus everette fascia split. Retractors placed care taken to protect the sciatic nerve which was palpated and visualized and was not dissected. Short external rotators were then released and preserved. The capsule was then teed and preserved. The hip was then dislocated the femoral neck resected. There was marked deformity and osteoarthritis of the femoral head. Retractors were then placed after the capsule was appropriately split and inspection of the acetabular revealed articular cartilage wear marked inverted labrum degenerative tearing this was all removed and then reamed up to a 52 and a 52 cup impacted in the appropriate anteversion and inclination. Was then secured with a 6 x 5 x 25 screw with excellent purchase. A new mobility liner was then placed after osteophytes resected was seated well. Femur was then flexed and internally rotated and jukebox checker canal finder lateralizing rasp and serial broaching up to a size 3 were performed. Trial reduction was excellent with a +4 head neck length. This is a high offset as well. Was a size 3 stem. All trial implants were then removed wound was irrigated and the permanent femoral stem head and dual mobility of all placed. The hip was reduced and was stable in all planes leg lengths were relatively equal. The wound was then irrigated with Betadine multiple times as it was during the case and then closed with #2 Vicryl for the capsule and short external rotators and the deep fascia several deep #2 Vicryl was placed for the thickness of the subcutaneous tissue the superficial area with 2-0 Vicryl standstill clips and retention sutures with 0 Prolene. Appropriate dressing applied the patient transferred recovery in satisfactory He tolerated seizure well. EBL was 150 cc or less crystalloid per anesthesia bone pathology pending DVT prophylaxis per protocol. Summary of implants all DePuy implants 52 shell acetabular shell sector cup: Meter cancellous screw 6.5 x 2552 metal dual mobility liner 3 high Actis stem 45/22 AltrX Poly liner 22.25+4 head. End of dictation thank you [place] copy especially hospital chart I attest to the content of the Intraoperative Record and any orders documented therein. Any exceptions are noted below.
--- NOTE | 2023-11-01 09:01 | Orthopedic Progress Note ---
Date of Service November 01, 2023 Orthopedic Progress Note Postop total hip replacement. Patient tolerated well denies chest pain shortness of breath fever chills nausea vomiting or headache. Vital signs are stable he is afebrile. Wound dressing clean dry and intact. Leg lengths look good. X-ray pending. W josh informed. Start DVT prophylaxis 24 hours postop with Eliquis. Get up out of bed move weightbearing as tolerated left leg postural and discretion precautions for hip replacements bilaterally.
--- NOTE | 2023-11-01 09:03 | Discharge Summary ---
Date of Service November 02, 2023 Admission HPI Per Admitting Provider Severe left hip pain Principal Diagnosis Severe osteoarthritis left hip Discharge Data Allergies Allergy/AdvReac Type Severity Reaction Status Date / Time shellfish derived Allergy Severe Anaphylaxis Verified 11/01/23 05:37 Penicillins Allergy Intermediate Hives Verified 11/01/23 05:37 atorvastatin Allergy Mild Muscle Verified 11/01/23 05:37 cramp sulfamethoxazole Allergy Unknown Unknown Verified 11/01/23 05:37 [From Bactrim] trimethoprim [From Bactrim] Allergy Unknown Unknown Verified 11/01/23 05:37 Vaccinations None Consultations None Procedures Performed Operation Date: 11/01/23 07:00 <No data on this case meets the specified criteria> Noncemented left total replacement with dual mobility implants Ordered Studies X-rays bone pathology Hospital Course (1) Status post left hip replacement: Plan Care plan for total hip replacement Total Time Total Time Spent Total Time Spent (In Minutes): 5 minutes Discharge Plan Discharge Items Patient Disposition: Home - Home Health Services Reason For Visit: Left Hip Osteoarthritis Discharge Diagnosis: Left hip s/p total hip replacement Condition on Discharge: Good Activity: Per Instructions section Lifting: Wait until after follow-up appointment Bathing: Keep incision dry Sexual Activity: Wait until after follow-up appointment Exercise/Sports: Wait until after follow-up appointment Driving/Machine Use: Nodriving until cleared by Dr. Elliott Weightbearing: Full weightbearing Non-emergency contact: Surgeon Call non-emergency contact if: you have any medication questions, your pain is not controlled, your temperature is above 101.5, your wound has increased redness, your wound has increased drainage and your wound pain has increased Follow-up/Referrals: David Pierson PA-C [Physician Amusement Machine Mechanic] - 11/16/23 2:30 pm Spike Bautista DO [Primary Care Provider] - Diet: Regular Addtl Attending Provider Instructions: New Medicine: * You will likely be taking one or more of these medicines: 1. Percocet - Take, as directed, when you need it, every four to six hours to control your pain. 2. Iron Sulfate - Take three times each day for the month after surgery to help you replace the blood lost during surgery. 3. Eliquis - Thins your blood to lessen the chance of forming a blood clot. * The most common side effects of pain medicine and iron are nausea and constipation. If nausea or constipation is too much of a problem or if you have any questions about your new medicines or doses, call [facility] at . We will try to help you manage these issues. "VERY IMPORTANT TO READ AND REVIEW" Blood Clots and Blood Thinning Medicine: * You are given Eliquis during the immediate post-operative period to lessen the risk of blood clots forming in your legs and/or lungs. It is usually given for 4 weeks after surgery. Pain: * The immediate post-operative period after hip replacement surgery is often quite painful. * You are given a prescription for pain medicine. You should take it, as directed, when you need it, especially before physical therapy and before going to bed. Pain that interferes with sleep is very common and can last several months. * You will likely need pain medicine for the first two to four weeks. It will not stop all of the pain. The pain will lessen and as you feel better, you may change to milder pain medicine such as Tylenol. * The most common side effects of pain medicine are nausea and constipation, so don't take more than you need. Physical Therapy: * Follow the "Hip Precautions Instructions." * In some cases, the renal social worker at the hospital will arrange to have a therapist come to your house for the first couple of weeks to help you learn these skills. * You need to practice on your own or with the help of a family member as needed. * When you learn these skills, most of the therapy can be done on your own. Home Exercise: * You were shown a series of exercises in the hospital. Do these exercises three to four times each day including the exercises you were shown in physical therapy. Walking: * Get up and walk several times each day. For the first four weeks, try not to stand or walk for more than one hour at a time. If you do stand or walk for more than one hour, you will not hurt anything, but your leg will likely swell. * As you feel comfortable, you may change from the walker or crutches to a cane and then to independent walking. SELF CARE INSTRUCTIONS AFTER TOTAL HIP REPLACEMENT Until the incision and soft tissues around your hip have healed, there is a possibility that the hip prosthesis could dislocate. A. Observe the following precautions to prevent dislocation: 1. Don't bend your hip greater than 90 degrees. 2. Avoid crossing your legs or ankles while standing or lying. 3. Sit with your feet placed 6 inches apart. 4. When sitting, keep your knees below your hips. Sit on a firm surface, avoid deep, soft chairs and couches. Use an elevated toilet seat in the bathroom. 5. Don't bend over at the waist. Use a long handled shoehorn and a sock aid to help you put on your shoes and socks. A pediatric critical care nurse can help you picker tender helper objects that are too high or too low to reach. 6. Keep car riding to a minimum for at least one month after surgery. B. Your balance may be shaky for a while. Use crutches or a walker until directed by your doctor. C. Use hand rails when walking on stairs. D. Wear low heeled shoes with non-slip soles. E. Be sure that your floors are free of things that could trip you - throw rugs, electrical cords, small objects. Avoid wet and waxed floors, especially with crutches and canes. F. Try to walk several times a day with rest periods between. G. Continue with all the exercises taught to you in the hospital. Again, make walking a part of your daily routine. VERY IMPORTANT TO READ AND REVIEW A. Take Eliquis (blood thinning medication) as directed by your doctor. B. There are a few signs you need to watch for after you are home. If you notice any of the followin. Increased severe hip pain. Some pain is expected especially when you exercise. 2. Increased swelling in your leg or knee; pain or swelling of the calf muscle in either lower leg. 3. Any fluid drainage from the incision. 4. Shortness of breath or chest pain. TEDs/Elastic Stockings: * The white elastic stockings help limit swelling and prevent blood clots from forming in your legs. The more you wear them, the more they work. * Wear them for six weeks. Prevention of Infection: * Take antibiotics one hour before any dental cleaning, dental work, urological procedure, gastrointestinal procedure or any invasive surgery in order to prevent your new joint from getting infected. * You may get the antibiotics from the doctor performing the procedure or we will call in a prescription to the pharmacy of your choice. Call the office for a prescription at least 2 days prior to your appointment. Things to Watch For: * Drainage from the incision site that occurs more than one week after your surgery. * Severely increased leg pain or swelling. * Increased redness at the incision site. * Fever above 101 degrees Fahrenheit. * Unusual chest pain or shortness of breath. * Unusual pain or burning with urination. Ice and elevate the hip frequently to reduce pain/swelling start your Eliquis tonight with dinner. Take it 2x day x 4 weeks start Prednisone 20mg tomorrow morning. Take it daily x 10 days use your walker for standing/ambulating use your wedge pillow for sleeping until cleared to discontinue. Follow up in the office with David for Wound vac removal and staple removal as scheduled Pending Studies at Discharge: Yes (Bone pathology) Stand-Alone Forms: [facility] C[facility] Medications and DC Order Prescriptions: No Action rosuvastatin [Crestor] 10 mg tablet 10 mg PO QAM Qty: 90 3RF Admission Data Admit Date/Time: 11/01/23 09:18 Attending Provider: Tong Elliott Admit Provider: Tong Elliott Primary Care Provider: Spike Bautista Other Providers: [facility],Home Healthcare; [facility],Referral Center
--- NOTE | 2023-11-01 09:09 | Operative Report ---
Post Operative Report Pre & Post Diagnosis Operation Date: 11/01/23 07:00 Pre-Op Diagnosis: Left Hip Degenerative Joint Disease Post-Op Diagnosis: Left Hip Degenerative Joint Disease I identified the patient and participated in the time-out.: Yes Procedure Operation Date: 11/01/23 07:00 Actual Procedures p Left Total Hip Arthroplasty with Dual Mobility Cup, Uncemented(Left) - Tong Elliott MD Surgeon MANNY Elliott MD Project Mgr GIL/Kenna QUINTANILLA Estimated Blood Loss 150 Findings Consistent with Post-Op Diagnosis see operative report Specimens see operative report Drains none Complications none Disposition Accompanied Patient To Recovery: Yes Indications This 78-year-old male presented to the office with complaints of persisting left hip pain. He had tried conservative care measures without improvement. He elected to proceed with surgical intervention after being educated about potential risks and outcomes. Preoperative imaging was obtained. Description of Procedure The patient was administered a spinal anesthetic and then taken to the operating room where he was given sedation. He was prepped and draped in the usual sterile fashion. Please see Dr. Elliott's operative report for specifics of the procedure. I was present for the entire case from initial patient positioning through final wound closure. Assistance was provided in tissue retraction, hemostasis, trial implant placement, final implant placement, and final wound closure. The patient was taken to the recovery room in satisfactory condition. I attest to the content of the Intraoperative Record and any orders documented therein. Any exceptions are noted below.
--- NOTE | 2023-11-01 09:11 | Operative Report ---
Post Operative Report Pre & Post Diagnosis Operation Date: 11/01/23 07:00 Pre-Op Diagnosis: Left Hip Degenerative Joint Disease Post-Op Diagnosis: Left Hip Degenerative Joint Disease I identified the patient and participated in the time-out.: Yes Procedure Operation Date: 11/01/23 07:00 Actual Procedures p Left Total Hip Arthroplasty with Dual Mobility Cup, Uncemented(Left) - Tong Elliott MD Surgeon Tong Elliott MD Real Estate Attorney GIL/Kenna QUINTANILLA Estimated Blood Loss 150 Findings Consistent with Post-Op Diagnosis Same as postoperative diagnosis. Specimens The resected bone and soft tissue from the Left hip. Description of Procedure Please see detailed operative note. I attest to the content of the Intraoperative Record and any orders documented therein. Any exceptions are noted below.
--- NOTE | 2023-11-01 09:20 | XRay Report ---
XR pelvis 1-2V routine CLINICAL HISTORY: Left hip arthroplasty. COMPARISON: Pelvis and left hip radiographs October 19, 2023. FINDINGS: Alignment of the left hip arthroplasty is anatomic. There is no periprosthetic fracture or unexpected radiopaque foreign body. Skin paty are present. Right hip arthroplasty is unchanged in appearance. IMPRESSION: Expected findings following left hip arthroplasty. ACT 112: Negative or not required by law. Electronically signed by: Albert Meraz M.D. 11/01/2023 9:19 AM
--- NOTE | 2023-11-01 10:29 | Anesthesiology Progress Note ---
Date of Service November 01, 2023 Anesthesia Post Procedure Vital Signs Vital Signs: Temp Pulse Resp BP Pulse Ox O2 Del Method O2 Flow Rate 11/01/23 10:20 72 17 129/72 95 Room Air 11/01/23 10:10 69 17 133/77 95 Room Air 11/01/23 10:00 36.3 C L 63 16 126/72 95 Room Air 11/01/23 09:50 64 15 114/68 97 Room Air 11/01/23 09:40 64 14 118/65 97 Room Air 11/01/23 09:30 65 20 111/68 96 Room Air 11/01/23 09:20 62 16 104/54 L 98 Oxymask 3 11/01/23 09:10 64 18 94/64 L 100 Oxymask 6 11/01/23 09:05 36.0 C L 71 20 105/58 L 97 Oxymask 6 11/01/23 05:44 36.7 C 72 22 132/69 96 Room Air Transfer of Care Handoff Completed per policy Notes Mental Status: alert / awake / arousable and participated in evaluation Nausea / Vomiting: adequately controlled Pain: adequately controlled Airway Patency, RR, SpO2: stable & adequate BP & HR: stable & adequate Hydration State: stable & adequate Neuraxial Anesthesia: was administered and sensory block is resolving Anesthetic Complications: no major complications apparent and Pt Satisfied with anesthetic care
[2023-11-01] MEDS ORDERED: NALOXONE HCL 0.4 MG/1 ML VIAL/CARP IV PRN (10:48)
[2023-11-01] MEDS ORDERED: METOCLOPRAMIDE HCL INJ 5 MG/ML 2 ML VIAL IV PRN (10:48)
[2023-11-01] MEDS ORDERED: HYDROmorphone INJ 0.5 MG/0.5 ML SYR IV PRN (10:48)
[2023-11-01] MEDS ORDERED: VANCOMYCIN CONSULT ACTIVE PRN (10:48)
[2023-11-01] MEDS ORDERED: SODIUM CHLORIDE 0.9% 1,000 ML IV SCH (10:48)
[2023-11-01] MEDS ORDERED: MAGNESIUM HYDROXIDE SUSP 30 ML UDC PO PRN (10:48)
[2023-11-01] MEDS ORDERED: bisacodyL 10 MG SUPP PR PRN (10:48)
[2023-11-01] MEDS ORDERED: ALUMINUM/MAGNESIUM SUSP 30 ML UDC PO PRN (10:48)
[2023-11-01] MEDS ORDERED: TAMSULOSIN HCL 0.4 MG CAP PO PRN (10:48)
[2023-11-01] MEDS ORDERED: diphenhydrAMINE 50 MG/ML VIAL IV PRN (10:48)
[2023-11-01] MEDS ORDERED: TRANEXAMIC ACID / 0.7% NACL 1000MG/100ML BAG IV ONE (10:51)
[2023-11-01] MEDS: KETOROLAC TROMETHAMINE 15 MG/ML VIAL IV SCH ×3 (11:59→21:32)
[2023-11-01] MEDS: oxyCODONE HCL IR 5 MG TAB (IMMEDIATE RELEASE) PO PRN ×3 (12:32→23:36)
[2023-11-01] MEDS: ACETAMINOPHEN 500 MG TAB PO SCH ×2 (13:53→21:32)
--- NOTE | 2023-11-01 14:22 | Anesthesiology Progress Note ---
Date of Service November 01, 2023 Anesthesia Post Procedure Vital Signs Vital Signs: Temp Pulse Pulse Resp BP Pulse Ox O2 Del Method 11/01/23 13:37 74 16 151/88 H 99 Room Air 11/01/23 12:26 74 16 167/76 H 99 Room Air 11/01/23 11:28 74 16 146/75 H 99 Room Air 11/01/23 11:07 70 16 146/88 H 96 Room Air 11/01/23 10:30 36.4 C L 70 16 139/75 97 Room Air 11/01/23 10:20 72 17 129/72 95 Room Air 11/01/23 10:10 69 17 133/77 95 Room Air 11/01/23 10:00 36.3 C L 63 16 126/72 95 Room Air 11/01/23 09:50 64 15 114/68 97 Room Air 11/01/23 09:40 64 14 118/65 97 Room Air 11/01/23 09:30 65 20 111/68 96 Room Air 11/01/23 09:20 62 16 104/54 L 98 Oxymask 11/01/23 09:10 64 18 94/64 L 100 Oxymask 11/01/23 09:05 36.0 C L 71 20 105/58 L 97 Oxymask 11/01/23 05:44 36.7 C 72 22 132/69 96 Room Air O2 Flow Rate 11/01/23 13:37 11/01/23 12:26 11/01/23 11:28 11/01/23 11:07 11/01/23 10:30 11/01/23 10:20 11/01/23 10:10 11/01/23 10:00 11/01/23 09:50 11/01/23 09:40 11/01/23 09:30 11/01/23 09:20 3 11/01/23 09:10 6 11/01/23 09:05 6 11/01/23 05:44 Transfer of Care Handoff Completed per policy Notes Mental Status: alert / awake / arousable Patient Amnestic to Procedure: Yes Nausea / Vomiting: adequately controlled Pain: adequately controlled Airway Patency, RR, SpO2: stable & adequate BP & HR: stable & adequate Hydration State: stable & adequate Anesthetic Complications: no major complications apparent
--- NOTE | 2023-11-01 14:33 | Orthopedic Progress Note ---
Date of Service November 01, 2023 Assessment & Plan Admission and Anticipated Discharge Date Admission Date: November 01, 2023 Orthopedic Progress Note Postop check status post left total hip replacement. Doing well denies chest pain shortness of breath fever chills nausea vomiting or headache. Vitals [was afebrile. Neurovascular check femoral sciatic nerve is normal. Close abduction is excellent. Assessment doing well continue care pathway mobilize postural and discretion needs to be respected. Continue with care pathway discharge home tomorrow.
[2023-11-01] MEDS: ceFAZolin 2000MG 2,000 MG/15 ML SYR IV SCH ×2 (15:24→23:35)
[2023-11-01] MEDS: ASCORBIC ACID 500 MG TAB PO SCH (16:43)
[2023-11-01] MEDS: FERROUS GLUCONATE 324 MG TAB PO SCH (16:43)
[2023-11-01] MEDS ORDERED: VANCOMYCIN HCL 2,000 MG in SODIUM CHLORIDE 0.9% 500 ML IV SCH (19:15)
[2023-11-01] MEDS: SENNA 8.6 MG TAB PO SCH (19:52)
[2023-11-01] MEDS: DOCUSATE SODIUM 100 MG CAP PO SCH (19:52)
[2023-11-02] MEDS: KETOROLAC TROMETHAMINE 15 MG/ML VIAL IV SCH (04:58)
[2023-11-02] MEDS: ACETAMINOPHEN 500 MG TAB PO SCH ×3 (04:59→22:23)
[2023-11-02] MEDS: oxyCODONE HCL IR 5 MG TAB (IMMEDIATE RELEASE) PO PRN ×2 (04:59→10:41)
--- NOTE | 2023-11-02 06:37 | Orthopedic Progress Note ---
Date of Service November 02, 2023 Assessment & Plan Admission and Anticipated Discharge Date Admission Date: November 01, 2023 Orthopedic Progress Note Postop day #1 status post left total hip replacement. Patient is doing well. Slept well. Denies chest pain shortness of breath fever chills nausea vomiting or headache. Vital signs are stable he is afebrile. Neurovascular check from sciatic nerve is normal. Hip is located. Wound dressing clean dry and intact. Calves nontender. A.m. labs pending. Assessment doing well status post left total replacement continue with PT OT mobilization dressing change later today by PA. Start Eliquis today. Follow-up in 1 week for dressing change. Placed Prevena on today. Discharge on 1 weeks worth of prednisone 20 mg daily followed by another week of 10 mg daily.
[2023-11-02] MEDS: ONDANSETRON INJ 2 MG/ML 2 ML VIAL IV PRN ×2 (07:08→11:48)
[2023-11-02 07:36] LABS: Basophils # (auto) 0.04 K/uL (0.00-0.20); Basophils % (auto) 0.3 %; Eosinophils # (auto) 0.04 K/uL (0.00-0.50); Eosinophils % (auto) 0.3 %; Hematocrit (blood only) 37.4 % (42.0-52.0); Hemoglobin 13.3 g/dl (14.0-18.0); Immature Granulocytes # (auto) 0.05 K/uL (0.01-0.20); Immature Granulocytes % (auto) 0.3 %; Lymphocytes # (auto) 3.04 K/uL (1.20-3.40); Lymphocytes % (auto) 21.3 %; Mean Corpuscular Hemoglobin 32.5 pg (25.0-34.0); Mean Corpuscular Hgb Conc 35.6 g/dL (32.0-36.0); Mean Corpuscular Volume 91.4 fL (80.0-100.0); Mean Platelet Volume 8.6 fL (9.4-12.4); Monocytes # (auto) 1.54 K/uL (0.11-0.59); Monocytes % (auto) 10.8 %; Neutrophils # (auto) 9.59 K/uL (1.40-6.50); Platelet Count 218 K/uL (130-400); RDW Coefficient of Variation 12.9 % (11.5-14.5); RDW Standard Deviation 42.8 fL (36.4-46.3); Red Blood Count 4.09 M/uL (4.70-6.10)
[2023-11-02] MEDS ORDERED: dexAMETHasone 10 MG in SYRINGE 0 ML IV SCH (08:00)
[2023-11-02 08:24] LABS: BUN Creatinine Ratio 14.6 (10-20); Calcium 8.8 mg/dl (8.6-10.3); Creatinine Clr Calc Pharmacy 96.3 ml/min; Est GFR (African American) 96.3 ml/min; Est GFR (Non-African American) 83.1 ml/min
[2023-11-02] MEDS: FERROUS GLUCONATE 324 MG TAB PO SCH ×2 (09:22→17:29)
[2023-11-02] MEDS: ROSUVASTATIN CALCIUM 10 MG TAB PO SCH (09:22)
[2023-11-02] MEDS: DOCUSATE SODIUM 100 MG CAP PO SCH ×2 (09:22→20:03)
[2023-11-02] MEDS: ASCORBIC ACID 500 MG TAB PO SCH ×2 (09:22→17:28)
[2023-11-02] MEDS: APIXABAN 2.5 MG TAB PO SCH ×2 (09:23→20:02)
[2023-11-02] MEDS: MULTIVITAMIN TAB PO SCH (09:23)
--- NOTE | 2023-11-02 09:40 | Orthopedic Progress Note ---
Date of Service November 02, 2023 Assessment & Plan (1) Status post left hip replacement: Plan: The patient was educated regarding today's findings. Conservative care measures were discussed. He may be experiencing near syncope secondary to his narcotic on board. His dressing was changed today by me. Prevena wound VAC was applied. It is functioning well. He will follow-up with me in the office in 1 week for removal. Likelihood that his near syncopal symptoms were related to his narcotic use was discussed. He will let the medications were off a bit more before attempting again. Written discharge instructions have been provided. Prescriptions for Percocet, Eliquis 2.5 mg, and prednisone 10 mg have been sent to his pharmacy. Physical therapy will attempt to get him out of bed again later this morning. Anticipate discharge to home today with home health services. Call the office with any other concerns. Admission and Anticipated Discharge Date Admission Date: November 01, 2023 Subjective This 78-year-old male is seen today in his room. He is 1 day status post left total hip arthroplasty. He states he had to take a lot of narcotic last evening for pain control. He denies any chest pain, shortness of breath, vomiting, or abdominal pain. He has tried to get up twice so far today but had to lay back down due to lightheadedness and nausea. His therapist is at bedside. No other complaints. Review of Systems Review of Systems: Unchanged from yesterday. Physical Exam Physical Exam: General: Well-developed, well-nourished, obese elderly male, in no acute distress. Laying in bed. Alert and oriented. Skin: Warm and dry with good turgor. Post surgical dressings are in place on the left hip. Upon removal, he has a large amount of drainage on his dressings. There is no active bleeding from his surgical incision. Expected postoperative ecchymosis and edema. Musculoskeletal: The patient has intact motor function of his left hip, knee, and ankle. He was able to get himself to bedside and sit up with minimal assistance. However, after sitting for few seconds, he became pale and stated he did not feel well. He experienced lightheadedness as well as nausea. No vomiting. No syncopal episode. He was reclined again and symptoms resolved. Neurologic: Gross sensation is intact across both lower extremities by soft touch. Peripheral pulses are 2+. Results & Data Vital Signs (Past 12 Hours) Vital Signs Temp Pulse Resp BP Pulse Ox O2 Del Method 11/02/23 07:28 36.5 C 81 16 124/70 93 Room Air 11/02/23 04:56 37.2 C 84 17 136/61 96 Room Air 11/01/23 23:19 36.6 C 80 18 120/64 96 Room Air Laboratory Results CBC obtained this morning shows a white count of 14.3. H&H of 13.3 and 37.4. Platelets 218,000. Sodium 133, potassium 4.0, chloride 101. Anion gap of 8. BUN of 13 with creatinine 0.89. Glucose 159. Calcium normal at 8.8.
[2023-11-02] MEDS ORDERED: traMADol HCL 50 MG TABLET PO PRN (16:31)
[2023-11-02] MEDS: ONDANSETRON 4 MG OD TAB PO SCH ×2 (17:27→22:23)
[2023-11-02] MEDS: SENNA 8.6 MG TAB PO SCH (20:03)
[2023-11-03] MEDS: ACETAMINOPHEN 500 MG TAB PO SCH (05:15)
[2023-11-03] MEDS: ONDANSETRON 4 MG OD TAB PO SCH (05:15)
--- NOTE | 2023-11-03 06:44 | Orthopedic Progress Note ---
Date of Service November 03, 2023 Assessment & Plan Admission and Anticipated Discharge Date Admission Date: November 01, 2023 Orthopedic Progress Note Postop day #2 chart review and discussion with his nurse patient was asleep. Did well overnight had no nausea. Only took Tylenol. Had 2 bowel movements. Got up and moved to the bathroom. With no issues. Vital signs are stable he is afebrile. He offers no complaints to nursing regarding chest pain shortness of breath fever chills nausea vomiting or headache. Assessment at this point in time have him seen by PT and discharge. JAYNE Briseno will evaluate him in person and make sure that things are completed as far as the discharge plan and to verify that his Prevena dressing is intact. He will follow-up in 1 week for dressing change. Please have him discharged with a prescription for Zofran as well.
--- NOTE | 2023-11-03 08:28 | Orthopedic Progress Note ---
Date of Service November 03, 2023 Assessment & Plan Admission and Anticipated Discharge Date Admission Date: November 01, 2023 Orthopedic Progress Note Spoke with the patient this morning he is awake alert denies chest pain shortness of breath fever chills nausea vomiting or headache. Vital signs are stable he is afebrile. He notes he has no further nausea , he had coffee and toast with no issues. He got up and went to the bathroom multiple times to void and to have bowel movements. He is noticed that he is passing gas well. He denies any belly pain. Assessment doing well plan is to have PT OT and have be discharged today. Again will need a prescription for Zofran of asked him to make sure he has the PA provide that for him. Follow-up in 1 week for wound check secondary to wound VAC in place.
[2023-11-03] MEDS: ASCORBIC ACID 500 MG TAB PO SCH (09:02)
[2023-11-03] MEDS: APIXABAN 2.5 MG TAB PO SCH (09:02)
[2023-11-03] MEDS: FERROUS GLUCONATE 324 MG TAB PO SCH (09:02)
[2023-11-03] MEDS: MULTIVITAMIN TAB PO SCH (09:03)
[2023-11-03] MEDS: DOCUSATE SODIUM 100 MG CAP PO SCH (09:03)
[2023-11-03] MEDS: ROSUVASTATIN CALCIUM 10 MG TAB PO SCH (09:04)
== END 2023-11-03 11:21 | disposition home health service (06) ==
LOC: ASU 05:12 → 3W 05:12